=== PATIENT | female | born 1965 | race Caucasian/White ===

== ENCOUNTER 2017-12-26 06:59 | Day surgery (SDC) | payer MEDICAID ==
[~2017-12-26] VITALS: Ht 147.3 cm; Wt 95.0 kg
[~2017-12-26 06:59] MED LIST: ASPI-496 PO; CEFD300C37 PO; DOXY100T PO; HYDR12.58 PO; TAMO10TA PO
[2017-12-26 07:24] VITALS: BP 148/98
[2017-12-26] MEDS ORDERED: FENTANYL PF 100 MCG/2ML ONE ×2 (09:15)
[2017-12-26] MEDS ORDERED: MIDAZOLAM 1 MG/ML, 5ML ONE (09:15)
[2017-12-26] MEDS ORDERED: FLUMAZENIL 0.1 MG/1 ML, 5ML ONE (09:16)
[2017-12-26] MEDS ORDERED: NALOXONE 1 MG/ML, 2ML ONE (09:16)
[2017-12-26] MEDS ORDERED: LIDOCAINE-MPF 1%, 5ML ONE (09:17)
== END 2017-12-26 11:15 | disposition home or self-care (01) ==
LOC: OUT 06:59
PROVIDERS: ATTEND Internal Medicine Hematology & Oncology
DX: T82.898A Other specified complication of vascular prosthetic devices, implants and grafts, initial encounter (principal); C50.312 Malignant neoplasm of lower-inner quadrant of left female breast; Y83.8 Other surgical procedures as the cause of abnormal reaction of the patient, or of later complication, without mention of misadventure at the time of the procedure; Y92.89 Other specified places as the place of occurrence of the external cause; I10 Essential (primary) hypertension; Z88.0 Allergy status to penicillin; Z88.2 Allergy status to sulfonamides; Z79.82 Long term (current) use of aspirin; Z79.899 Other long term (current) drug therapy; Z98.890 Other specified postprocedural states
CPT/HCPCS: 36589; 77001; 99156; 99157; J2250; J3010; J2310

== ENCOUNTER → 2018-01-24 | Outpatient (CLI) | payer MEDICAID | END | disposition home or self-care (01) | LOC: CFH 07:44 | PROVIDERS: ATTEND Internal Medicine Hematology & Oncology | DX: Z13.820 Encounter for screening for osteoporosis (principal); C50.312 Malignant neoplasm of lower-inner quadrant of left female breast; Z78.0 Asymptomatic menopausal state | CPT/HCPCS: 77080 ==

== ENCOUNTER 2020-07-31 16:23 | Inpatient (IN) | payer MEDICAID ==
[~2020-07-31] VITALS: Ht 147.3 cm; Wt 93.0 kg
[~2020-07-31 16:23] MED LIST changes: -HYDR12.58 PO; +HYDROCHLOROTH12.5 MG PO; -TAMO10TA PO; +TAMO10TA6 PO
--- NOTE | 2020-07-31 16:30 | NUR ---
THIS IS A 54 YO FEMALE PATIENT THAT WAS CALLED CODE 250 FROM [facility]. MIXED BRIGHT RED BLOOD AND DARK RED BLOOD COMING FROM RECTUM STARTING THIS AM CONTINUOUSLY. DENIES N/V/ABD PAIN, DENIES ANY HX OF GI BLEEDS IN PAST, NOT TAKING ANY BLOOD THINNERS AT THIS MOMENT. ALL MONITORING IN PLACE, VSS, BRENNAN ON SENIOR NET DEVELOPER. A&OX4, STATES "I JUST FEEL A LITTLE SHAKEY". CALL LIGHT IN REACH, ERP IN ROOM FOR EVAL Addendum: 07/31/20 at 2055 by DEANNA NSR* ON SENIOR NET DEVELOPER
[2020-07-31 16:55] LABS: BASOPHILS % (AUTO) 1 % (0-1); EOSINOPHILS % (AUTO) 1 % (1-7); LYMPHOCYTES % (AUTO) 12 % (22-44); MEAN CORPUSCULAR HEMOGLOBIN 29.2 pg (27.0-34.8); MEAN CORPUSCULAR HGB CONC 32.3 g/dL (32.4-35.8); MEAN PLATELET VOLUME 8.7 fL (7.4-10.4); MONOCYTES % (AUTO) 6 % (2-9); NEUTROPHILS % (AUTO) 80 % (42-75); PLATELET COUNT 401 x10^3/uL (130-400); RED BLOOD COUNT 4.88 x10^6/uL (3.82-5.3); RED CELL DISTRIBUTION WIDTH 14.2 % (9.6-15.2)
[2020-07-31 16:56] LABS: MD NO
[2020-07-31] MEDS ORDERED: SODIUM CHLORIDE 0.9% 1,000ML IVBOLUS ONE (17:00)
[2020-07-31 17:02] LABS: ALBUMIN 3.4 g/dL (3.4-5.0); ANION GAP 9 mmol/L (5-15); CHLORIDE 112 mmol/L (98-107); CREATININE 1.48 mg/dL (0.55-1.02)
[2020-07-31 17:06] LABS: INTERNATIONAL NORMALIZED RATIO 1.02 (0.93-1.1); PROTHROMBIN TIME 10.8 Seconds (9.6-11.5)
--- NOTE | 2020-07-31 17:30 | NUR ---
PATIENT TO COMMODE FOR "PRESSURE OF KEEPING THINGS IN", BLOOD EXPELLED, RELIEF OF PAIN/PRESSURE
[2020-07-31] MEDS ORDERED: SODIUM CHLORIDE FLUSH 10ML SYR IVF PRN (18:00)
[2020-07-31] MEDS ORDERED: SODIUM CHLORIDE 0.9% 1,000 ML IV ONE (18:00)
--- NOTE | 2020-07-31 18:17 | NUR ---
PATIENT HAD VAGAL RESPONSE WHILE PASSING BLOOD RECTALLY, BP 63/35 WITH HR 55 AND PATIENT STATES "I THINK I AM PASSING OUT, I FEEL HOT AND NAUSEOUS", PLACED IN TRENDELENBERG, BP TRENDING BACK UP, CURRENTLY AT 112/60 HR 83. SECOND LITER IVF RUNNING AT THIS TIME.
--- NOTE | 2020-07-31 18:45 | NUR ---
GI DOCTOR IN ROOM FOR EVAL
[2020-07-31] MEDS ORDERED: ONDANSETRON 2MG/ML, 2ML IVPush PRN (19:00)
--- NOTE | 2020-07-31 19:00 | NUR ---
PATIENT HAD BOWEL MOVEMENT, LARGE AMOUNT OF DARK RED BLOOD PRESENT. LINENS CHANGED. MONITORING IN PLACE, VSS, NADN
--- NOTE | 2020-07-31 20:10 | NUR ---
PATIENT RESTING ON GURNEY, RESPIRATIONS EVEN AND UNLABORED, VSS, NADN. MONITORING IN PLACE, CALL LIGHT IN REACH
--- NOTE | 2020-07-31 20:17 | NUR ---
ATTEMPTED TO CALL REPORT X1
--- NOTE | 2020-07-31 20:35 | NUR ---
ATTEMPTED TO CALL REPORT X2
--- NOTE | 2020-07-31 20:58 | NUR ---
ATTEMPTED TO CALL REPORT X3, THEY STATES "ИВАН IS SUPPOSED TO BE THE NURSE AND SHE IS NOWHERE TO BE FOUND", PER PROTOCOL, THIS RN TO GIVE REPORT TO [employer], AND WAS ON HOLD FOR 15 MINS
--- NOTE | 2020-07-31 21:38 | NUR ---
REPORT GIVEN TO ELIZABETH OATES. PLAN OF CARE DISCUSSED
[2020-07-31 22:00] VITALS: BP 131/83
[2020-07-31] MEDS: SODIUM CHLORIDE 0.45% 1,000 ML IV SCH (22:26)
[2020-07-31] MEDS: MOVIPREP POWDER 1 PREP KIT PO SCH (22:27)
[2020-08-01 01:04] VITALS: BP 132/79
[2020-08-01 06:55] LABS: ANION GAP 7 mmol/L (5-15); CALCIUM 8.4 mg/dL (8.5-10.1); CHLORIDE 115 mmol/L (98-107)
[2020-08-01 08:07] VITALS: BP 122/62
[2020-08-01 08:07] LABS: BASOPHILS % (AUTO) 1 % (0-1); EOSINOPHILS % (AUTO) 1 % (1-7); LYMPHOCYTES % (AUTO) 21 % (22-44); MEAN CORPUSCULAR HEMOGLOBIN 29.7 pg (27.0-34.8); MEAN CORPUSCULAR HGB CONC 32.5 g/dL (32.4-35.8); MEAN PLATELET VOLUME 8.3 fL (7.4-10.4); MONOCYTES % (AUTO) 9 % (2-9); NEUTROPHILS % (AUTO) 69 % (42-75); PLATELET COUNT 335 x10^3/uL (130-400); RED BLOOD COUNT 3.76 x10^6/uL (3.82-5.3); RED CELL DISTRIBUTION WIDTH 14.3 % (9.6-15.2)
[2020-08-01 08:10] LABS: MD NO
[2020-08-01] MEDS: SODIUM CHLORIDE 0.45% 1,000 ML IV SCH ×2 (09:35→23:49)
[2020-08-01] MEDS: MOVIPREP POWDER 1 PREP KIT PO SCH ×2 (09:38→20:48)
[2020-08-01] MEDS ORDERED: CHLORHEXIDINE 15 ML UDC ONE (10:59)
[2020-08-01] MEDS ORDERED: OXYcodone 5 MG/5 ML ORAL.SOL UDC PO PRN (12:30)
[2020-08-01] MEDS ORDERED: ONDANSETRON 2MG/ML, 2ML IVPush PRN (12:30)
[2020-08-01] MEDS ORDERED: FENTANYL PF 100 MCG/2ML IV PRN (12:30)
[2020-08-01 13:06] VITALS: BP 119/87
[2020-08-01 19:42] VITALS: BP 137/84
[2020-08-01 23:59] LABS: MICROSCOPIC INDICATED
[2020-08-02 01:32] VITALS: BP 127/76
[2020-08-02 01:53] LABS: % IRON SATURATION 33 % (20-55); IRON LEVEL 80 mcg/dL (50-170); TOTAL IRON BINDING CAPACITY 244 mcg/dL (250-450)
[2020-08-02 06:35] VITALS: BP 141/83
[2020-08-02] MEDS: MOVIPREP POWDER 1 PREP KIT PO SCH (07:06)
[2020-08-02] MEDS ORDERED: SODIUM CHLORIDE 0.45% 1,000 ML IV SCH (19:00)
== END 2020-08-02 11:05 | disposition home or self-care (01) | DRG 378 ==
LOC: ED 18:17 → EDIP 18:41 → 4WST 21:59 → DCLOUNGE 08-02 11:01
PROVIDERS: ADMIT Family Medicine; ATTEND Internal Medicine
PROC: 0T9B70Z Drainage of Bladder with Drainage Device, Via Natural or Artificial Opening (ICD-10-PCS; 2020-08-01)
PROC: 0W3P8ZZ Control Bleeding in Gastrointestinal Tract, Via Natural or Artificial Opening Endoscopic (ICD-10-PCS; principal; 2020-08-01 11:30)
DX: K57.31 Diverticulosis of large intestine without perforation or abscess with bleeding (principal); E87.2 Acidosis; Z68.41 Body mass index [BMI] 40.0-44.9, adult; N17.9 Acute kidney failure, unspecified; R65.10 Systemic inflammatory response syndrome (SIRS) of non-infectious origin without acute organ dysfunction; E66.01 Morbid (severe) obesity due to excess calories; E83.51 Hypocalcemia; I12.9 Hypertensive chronic kidney disease with stage 1 through stage 4 chronic kidney disease, or unspecified chronic kidney disease; Z20.828 Contact with and (suspected) exposure to other viral communicable diseases; N18.30 Chronic kidney disease, stage 3 unspecified; Z85.3 Personal history of malignant neoplasm of breast; Z85.71 Personal history of Hodgkin lymphoma; Z87.891 Personal history of nicotine dependence; Z90.13 Acquired absence of bilateral breasts and nipples; Z90.710 Acquired absence of both cervix and uterus; Z92.21 Personal history of antineoplastic chemotherapy; Z88.0 Allergy status to penicillin; Z88.2 Allergy status to sulfonamides
CPT/HCPCS: 36415; 80048; 81001; 82040; 83036; 83540; 83550; 85014; 85018; 85025; 85610; 85730; 86850; 86900; 87635; G0378; J7030